=== PATIENT | female | born 1965 | race Caucasian/White ===

== ENCOUNTER 2016-08-01 22:58 | Emergency (ER) | payer OTHER ==
[~2016-08-01] VITALS: Ht 157.5 cm; Wt 113.4 kg
[~2016-08-01 22:58] MED LIST: ASPIR 8181 MG PO; BACTROBAN CREAM30 G1 TOP; BUPROPION HCL100 MG PO; CLARITIN10 MG PO; GUAIFEN-CODEIN120 ML PO; LEXAPRO PO; METHOCARBAMOL500 M2 PO; NAPROSYN500 MG PO; NEXIUM40 MG PO; PROZAC20 M1 PO; REMERON15 MG PO; TESSALON PERLE100 MG PO; TRAMADOL 50 MG50 MG PO; VENTOLIN HFA 1818 GM INH; XANAX; ZYRTEC10 M4 PO
[2016-08-02 00:11] VITALS: BP 150/92
== END 2016-08-02 00:12 | disposition home or self-care (01) ==
LOC: ER 22:58
DX: J06.9 Acute upper respiratory infection, unspecified (principal); J40 Bronchitis, not specified as acute or chronic; F32.9 Major depressive disorder, single episode, unspecified; F41.9 Anxiety disorder, unspecified; I69.398 Other sequelae of cerebral infarction; Z88.8 Allergy status to other drugs, medicaments and biological substances; Z88.5 Allergy status to narcotic agent